=== PATIENT | female | born 1995 | race Caucasian/White ===

== ENCOUNTER 2016-11-22 15:35 | Emergency (ER) | payer SELFPAY ==
[~2016-11-22] VITALS: Wt 60.0 kg
[~2016-11-22 15:35] MED LIST: DOXY100T20 PO
== END 2016-11-22 18:20 | disposition left against medical advice (07) ==
LOC: FTE 15:35
DX: Z53.21 Procedure and treatment not carried out due to patient leaving prior to being seen by health care provider (principal)